=== PATIENT | male | born 2000 | race American Indian/Alaskan Native ===

== ENCOUNTER 2020-10-15 00:47 | Emergency (ER) | payer SELFPAY ==
[2020-10-15 01:59] VITALS: BP 140/78
[2020-10-15] MEDS ORDERED: predniSONE 20 MG TAB PO ONE (04:38)
--- NOTE | 2020-10-15 05:16 | XRay Report ---
CHEST 1 VIEW INDICATION / CLINICAL INFORMATION: cough. FINDINGS: SUPPORT DEVICES: None. HEART / MEDIASTINUM: No significant abnormality. LUNGS / PLEURA: No significant pulmonary or pleural abnormality. No pneumothorax. ADDITIONAL FINDINGS: No significant additional findings. IMPRESSION: 1. No acute findings. Signer Name: Greyson Nails MD Signed: 10/15/2020 5:11 AM Workstation Name: [id number]
--- NOTE | 2020-10-15 05:22 | Emergency Department Report ---
- General Chief Complaint: Dyspnea/Respdistress Stated Complaint: SOB COUGHING UP MUSUS RUNNY NOSE Source: patient Mode of arrival: Ambulatory Limitations: No Limitations - History of Present Illness Initial Comments: Patient is a 19-year-old -Citizen Of [place] male with a history of asthma who presents to the ED with complaint of acute onset persistent nasal and sinus congestion, persistent dry cough for the last 1 week. 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 Patient states that in the last 6 hours, the symptoms got worse and he decided come to the ED for evaluation. Patient states that no one else at home has had similar symptoms although he is unsure of anyone else at work with similar symptoms. Patient denies fever, nausea, vomiting, diarrhea, dizziness, syncope, abdominal pain, chest pain, sore throat, change in vision, dysuria, urinary frequency and urgency. MD Complaint: cough, rhinorrhea, nasal congestion, sinus pain, other (Body aches and pains) -: Sudden, days(s) (5) Severity: severe Severity scale (0 -10): 7 Quality: aching Consistency: constant Improves With: nothing Worsens With: nothing Context: sick contacts Associated Symptoms: denies other symptoms, chills, headache, rhinorrhea, nasal congestion, cough, shortness of breath. denies: fever, myalgias, diaphoresis, sore throat, stiff neck, chest pain, abdominal pain, nausea, vomiting, diarrhea, dysuria, rash, confusion, right sweats, epistaxis, hoarseness, ear pain Treatments Prior to Arrival: none - Related Data Previous Rx's Medication Instructions Recorded Last Taken Type Albuterol Sulfate [Ventolin HFA] 2 puff IH Q4H PRN #1 hfa.aer.ad 01/18/18 Unknown Rx Prednisone [predniSONE 5 mg (6-Day 5 mg PO .TAPER #1 tab.ds.pk 01/18/18 Unknown Rx Pack, 21 Tabs)] Albuterol Sulfate [Proventil Hfa] 1 - 2 puff IH Q6H PRN #1 hfa.aer.ad 10/15/20 Unknown Rx Benzonatate [Tessalon Perles] 100 mg PO Q8HR #30 capsule 10/15/20 Unknown Rx Cetirizine HCl [ZyrTEC 10mg cap] 10 mg PO QDAY #30 capsule 10/15/20 Unknown Rx predniSONE [Deltasone] 40 mg PO QDAY #10 tab 10/15/20 Unknown Rx Allergies Allergy/AdvReac Type Severity Reaction Status Date / Time No Known Allergies Allergy Unverified 01/17/18 23:04 ED Review of Systems ROS: Stated complaint: SOB COUGHING UP MUSUS RUNNY NOSE Other details as noted in HPI Constitutional: chills, malaise, weakness. denies: fever Eyes: denies: eye pain, eye discharge, vision change ENT: congestion. denies: ear pain, throat pain Respiratory: cough, shortness of breath. denies: wheezing Cardiovascular: denies: chest pain, palpitations Endocrine: no symptoms reported Gastrointestinal: denies: abdominal pain, nausea, vomiting, diarrhea Genitourinary: denies: urgency, dysuria Musculoskeletal: arthralgia, myalgia. denies: back pain, joint swelling Skin: denies: rash, lesions Neurological: headache. denies: weakness, paresthesias Psychiatric: denies: anxiety, depression Hematological/Lymphatic: denies: easy bleeding, easy bruising ED Past Medical Hx - Past Medical History Previous Medical History?: Yes Hx Asthma: Yes - Surgical History Past Surgical History?: Yes Additional Surgical History: Jaw, tonsilectomy - Social History Smoking Status: Current Every Day Smoker Substance Use Type: None - Medications Home Medications: Home Medications Medication Instructions Recorded Confirmed Last Taken Type Albuterol Sulfate [Ventolin HFA] 2 puff IH Q4H PRN #1 hfa.aer.ad 01/18/18 Unknown Rx Prednisone [predniSONE 5 mg (6-Day 5 mg PO .TAPER #1 tab.ds.pk 01/18/18 Unknown Rx Pack, 21 Tabs)] Albuterol Sulfate [Proventil Hfa] 1 - 2 puff IH Q6H PRN #1 hfa.aer.ad 10/15/20 Unknown Rx Benzonatate [Tessalon Perles] 100 mg PO Q8HR #30 capsule 10/15/20 Unknown Rx Cetirizine HCl [ZyrTEC 10mg cap] 10 mg PO QDAY #30 capsule 10/15/20 Unknown Rx predniSONE [Deltasone] 40 mg PO QDAY #10 tab 10/15/20 Unknown Rx ED Physical Exam - General Limitations: No Limitations General appearance: alert, in no apparent distress - Head Head exam: Present: atraumatic, normocephalic, normal inspection - Eye Eye exam: Present: normal appearance, PERRL, EOMI Pupils: Present: normal accommodation - ENT ENT exam: Present: normal orophraynx, mucous membranes moist, TM's normal bilaterally, normal external ear exam, other (Grossly congested nasal passages) - Neck Neck exam: Present: normal inspection, full ROM - Respiratory Respiratory exam: Present: normal lung sounds bilaterally. Absent: respiratory distress, wheezes, rales, rhonchi, stridor, chest wall tenderness, accessory muscle use, decreased breath sounds - Cardiovascular Cardiovascular Exam: Present: regular rate, normal rhythm, normal heart sounds. Absent: systolic murmur, diastolic murmur, rubs, gallop - GI/Abdominal GI/Abdominal exam: Present: soft, normal bowel sounds. Absent: tenderness, guarding, hyperactive bowel sounds - Extremities Exam Extremities exam: Present: normal inspection, full ROM, normal capillary refill - Back Exam Back exam: Present: normal inspection, full ROM. Absent: tenderness, CVA tenderness (R), CVA tenderness (L), muscle spasm, paraspinal tenderness, vertebral tenderness - Neurological Exam Neurological exam: Present: alert, oriented X3, CN II-XII intact, normal gait, reflexes normal - Psychiatric Psychiatric exam: Present: normal affect, normal mood, anxious - Skin Skin exam: Present: warm, dry, intact, normal color. Absent: rash ED Course Vital Signs 10/15/20 01:57 Temperature 98.1 F Pulse Rate 79 Respiratory 16 Rate Blood Pressure 140/78 O2 Sat by Pulse 97 Oximetry ED Medical Decision Making - Radiology Data Radiology results: report reviewed, image reviewed Chest x-ray shows no acute cardiopulmonary abnormalities or pneumonitis - Medical Decision Making This is a 19-year-old -Citizen Of [place] male with a history of asthma who presents to the ED with complaint of acute onset persistent nasal and sinus congestion, persistent dry cough for the last 1 week. 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 Patient states that in the last 6 hours, the symptoms got worse and he decided come to the ED for evaluation. Patient states that no one else at home has had similar symptoms although he is unsure of anyone else at work with similar symptoms. In the ED, patient is alert and oriented x3 and is not in any distress. Chest x-ray showed no acute cardiopulmonary abnormalities or pneumonitis. Patient was discharged home on medications and advised to follow-up with his primary care physician in 5 to 7 days for reevaluation or return to the ED immediately if symptoms get worse. - Differential Diagnosis URI; bronchitis; asthma; pneumonia; COVID-19 Critical care attestation.: If time is entered above; I have spent that time in minutes in the direct care of this critically ill patient, excluding procedure time. ED Disposition Clinical Impression: Acute bronchitis with asthma with acute exacerbation, Acute upper respiratory infection Disposition: HOME / SELF CARE / HOMELESS Is pt being admited?: No Does the pt Need Aspirin: No Condition: Stable Instructions: Acute Bronchitis (ED), Upper Respiratory Infection, Adult, [id number], Cough, Adult, [id number], Acute Bronchitis, Adult, [id number], Asthma, Adult, [id number] Additional Instructions: Chest x-ray shows no acute cardiopulmonary abnormalities or pneumonitis. Your symptoms are likely due to acute upper respiratory infection versus bronchitis or asthma attack. Therefore take medications as advised, drink plenty of fluids and follow-up with your primary care physician in 5 to 7 days for reevaluation. Return to the ED immediately if symptoms get worse. Prescriptions: predniSONE [Deltasone] 40 mg PO QDAY #10 tab Albuterol Sulfate [Proventil Hfa] 1 - 2 puff IH Q6H PRN #1 hfa.aer.ad PRN Reason: Shortness Of Breath Benzonatate [Tessalon Perles] 100 mg PO Q8HR #30 capsule Cetirizine HCl [ZyrTEC 10mg cap] 10 mg PO QDAY #30 capsule Referrals: [facility] [Provider Group] - 3-5 Days Forms: Work/School Release Form(ED) Time of Disposition: 05:22 Print Language: NEPALI
== END 2020-10-15 05:30 | disposition home or self-care (01) ==
LOC: ED 00:47
DX: J45.901 Unspecified asthma with (acute) exacerbation (principal); J06.9 Acute upper respiratory infection, unspecified; J20.9 Acute bronchitis, unspecified; F17.200 Nicotine dependence, unspecified, uncomplicated; Z79.899 Other long term (current) drug therapy; Z90.49 Acquired absence of other specified parts of digestive tract
CPT/HCPCS: 71045

== ENCOUNTER 2021-09-26 07:15 | Emergency (ER) | payer SELFPAY ==
[2021-09-26 07:29] VITALS: BP 134/80
--- NOTE | 2021-09-26 07:32 | Emergency Department Report ---
Stated Complaint: LEFT EAR AND LEFT JAW PAIN - HPI History of Present Illness: Left side jaw pain x 2weeks. reports hard time eating and drinking. 08/28 last time took tylenol or motrin this AM hard time sleeping due to pain - ROS Review of Systems: Left-sided jaw pain left ear pain - Exam Vital Signs: Vital Signs 09/26/21 07:24 Temperature 98.6 F Pulse Rate 74 Respiratory 18 Rate Blood Pressure 134/80 [Right] O2 Sat by Pulse 97 Oximetry Physical Exam: Alert and oriented x4 No respiratory distress Ambulatory with normal gait. MSE screening note: Focused history and physical exam performed. Due to findings the following was ordered: MSE complete. Orders to be placed. Patient to be seen by another provider in the back. Triage complete. ED Disposition for MSE Condition: Stable
--- NOTE | 2021-09-26 08:21 | Emergency Department Report ---
ED General Adult HPI - General Chief complaint: Earache Stated complaint: LEFT EAR AND LEFT JAW PAIN Time Seen by Provider: 09/26/21 07:45 Source: patient Mode of arrival: Ambulatory Limitations: No Limitations - History of Present Illness Initial comments: 20-year-old male with no significant past medical history reports to the ER with complaints of left jaw pain and ear pain for about 2 weeks. Patient reports pain with eating. Patient reports taken [id number] medications with no relief in pain. Patient reports a hard time sleeping due to pain. Patient reports no other acute symptoms at this time. Patient denies fevers. Severity scale (0 -10): 10 - Related Data Previous Rx's Medication Instructions Recorded Last Taken Type Albuterol Sulfate [Ventolin HFA] 2 puff IH Q4H PRN #1 hfa.aer.ad 01/18/18 Unknown Rx Prednisone [predniSONE 5 mg (6-Day 5 mg PO .TAPER #1 tab.ds.pk 01/18/18 Unknown Rx Pack, 21 Tabs)] Albuterol Sulfate [Proventil Hfa] 1 - 2 puff IH Q6H PRN #1 hfa.aer.ad 10/15/20 Unknown Rx Benzonatate [Tessalon Perles] 100 mg PO Q8HR #30 capsule 10/15/20 Unknown Rx Cetirizine HCl [ZyrTEC 10mg cap] 10 mg PO QDAY #30 capsule 10/15/20 Unknown Rx predniSONE [Deltasone] 40 mg PO QDAY #10 tab 10/15/20 Unknown Rx Acetaminophen/Codeine [Tylenol 1 tab PO Q6H PRN 2 Days #8 tab 09/26/21 Unknown Rx /Codeine # 3 tab] Amoxicillin [Trimox CAP] 500 mg PO BID 10 Days #20 capsule 09/26/21 Unknown Rx Ibuprofen [Motrin] 800 mg PO Q8HR PRN 6 Days #18 09/26/21 Unknown Rx tablet Allergies Allergy/AdvReac Type Severity Reaction Status Date / Time No Known Allergies Allergy Verified 09/26/21 07:29 ED Review of Systems ROS: Stated complaint: LEFT EAR AND LEFT JAW PAIN Other details as noted in HPI Comment: All other systems reviewed and negative ENT: dental pain, other (Left ear pain) ED Past Medical Hx - Past Medical History Hx Asthma: Yes - Surgical History Additional Surgical History: Jaw, tonsilectomy - Social History Smoking Status: Current Every Day Smoker Substance Use Type: None - Medications Home Medications: Home Medications Medication Instructions Recorded Confirmed Last Taken Type Albuterol Sulfate [Ventolin HFA] 2 puff IH Q4H PRN #1 hfa.aer.ad 01/18/18 Unknown Rx Prednisone [predniSONE 5 mg (6-Day 5 mg PO .TAPER #1 tab.ds.pk 01/18/18 Unknown Rx Pack, 21 Tabs)] Albuterol Sulfate [Proventil Hfa] 1 - 2 puff IH Q6H PRN #1 hfa.aer.ad 10/15/20 Unknown Rx Benzonatate [Tessalon Perles] 100 mg PO Q8HR #30 capsule 10/15/20 Unknown Rx Cetirizine HCl [ZyrTEC 10mg cap] 10 mg PO QDAY #30 capsule 10/15/20 Unknown Rx predniSONE [Deltasone] 40 mg PO QDAY #10 tab 10/15/20 Unknown Rx Acetaminophen/Codeine [Tylenol 1 tab PO Q6H PRN 2 Days #8 tab 09/26/21 Unknown Rx /Codeine # 3 tab] Amoxicillin [Trimox CAP] 500 mg PO BID 10 Days #20 capsule 09/26/21 Unknown Rx Ibuprofen [Motrin] 800 mg PO Q8HR PRN 6 Days #18 09/26/21 Unknown Rx tablet ED Physical Exam - General Limitations: No Limitations ED Course Vital Signs 09/26/21 07:24 Temperature 98.6 F Pulse Rate 74 Respiratory 18 Rate Blood Pressure 134/80 [Right] O2 Sat by Pulse 97 Oximetry ED Medical Decision Making - Medical Decision Making 20-year-old male with no significant past medical history reports to the ER with complaints of left jaw pain and ear pain for about 2 weeks. Patient reports pain with eating. Patient reports taken [id number] medications with no relief in pain. Patient reports a hard time sleeping due to pain. Patient reports no other acute symptoms at this time. Patient denies fevers. On physical exam patient has a chipped upper left last molar tooth with slight swelling and tenderness noted. Right ear shows TM intact, no canal erythema or tenderness noted. No airway concerns noted. No neck swelling noted. No peritonsillar abscess noted. Patient to be sent home with oral antibiotics with dental infection. Patient agrees with plan of care and verbalized understanding. Patient is stable for discharge home. Patient to follow-up with his primary care provider as well as his dentist. Vital Signs 09/26/21 07:24 Temperature 98.6 F Pulse Rate 74 Respiratory 18 Rate Blood Pressure 134/80 [Right] O2 Sat by Pulse 97 Oximetry Critical care attestation.: If time is entered above; I have spent that time in minutes in the direct care of this critically ill patient, excluding procedure time. ED Disposition Clinical Impression: Dental infection, Left ear pain, Jaw pain Disposition: 01 HOME / SELF CARE / HOMELESS Is pt being admited?: No Condition: Stable Instructions: Earache, Adult Prescriptions: Ibuprofen [Motrin] 800 mg PO Q8HR PRN 6 Days #18 tablet PRN Reason: Pain, Moderate (4-6) Amoxicillin [Trimox CAP] 500 mg PO BID 10 Days #20 capsule Acetaminophen/Codeine [Tylenol /Codeine # 3 tab] 1 tab PO Q6H PRN 2 Days #8 tab PRN Reason: Pain , Severe (7-10) Referrals: [facility] [Outside] - 3-5 Days [facility] [Outside] - 3-5 Days
== END 2021-09-26 09:00 | disposition home or self-care (01) ==
LOC: ED 07:15
DX: K04.7 Periapical abscess without sinus (principal); H92.02 Otalgia, left ear; J45.909 Unspecified asthma, uncomplicated; F17.200 Nicotine dependence, unspecified, uncomplicated; Z90.89 Acquired absence of other organs; Z79.899 Other long term (current) drug therapy
CPT/HCPCS: 99282